=== PATIENT | male | born 1955 | race Caucasian/White ===

== ENCOUNTER 2023-12-20 00:11 | Emergency (ER) | payer BC, SELFPAY ==
[2023-12-20] VITALS (8 sets, daily range): BP systolic 138–170; BP diastolic 62–95; PULSE 53–56; RESP 16–22; TEMP 36.1; O2SAT 95–100; BMI 31.8
--- NOTE | 2023-12-20 00:45 | ED.ABDPAIN ---
HPI - Abdominal Pain General Chief Complaint: Abdominal Pain Stated Complaint: abdominal pain Time Seen by Provider: 12/20/23 00:39 Source: patient Mode of arrival: Ambulatory History of Present Illness HPI narrative: This is a 68-year-old male with a history of hypertension on lisinopril, patient presents with sudden onset of mid abdominal pain states it does not radiate, it kind of goes throughout the abdomen. He states it does not go to his chest it does not go to his back. He denies any fevers. He has had nausea no vomiting. He denies any shortness of breath. No lightheadedness or syncope. States he has been having bowel movements had 1 today he states it was normal size, soft and formed. Denies any black or bloody stools. Denies any urinary symptoms. He states pain woke him up from sleep. He has not had similar symptoms in the past. Has been increasing over time for the past 2 hours. He has not taken anything for pain. Denies any fevers or chills. States he has had prior hip replacement and neck intervention but no abdominal surgeries. No known drug allergies. No tobacco, alcohol or recreational drugs. They live in [place]. They are visiting the area he does have primary care where he lives. Related Data Allergies Allergy/AdvReac Type Severity Reaction Status Date / Time No Known Drug Allergies Allergy Verified 12/20/23 00:20 Review of Systems Review of Systems ROS Unobtainable: All systems reviewed & are unremarkable except as noted in HPI and below Patient History Social History Smoking Status: Never smoker Smoking Status: Never smoker Substance Use Type: does not use Exam Narrative Exam Narrative: GENERAL: Alert and oriented x three, obese male in moderate distress. HEENT: Head normocephalic, atraumatic, EOMI, pupils reactive, face symmetric, moist mucous membranes NECK: Supple, full range of motion CARDIOVASCULAR: Regular rate and rhythm without murmurs, rubs or gallops. RESPIRATORY: Breath sounds equal bilaterally, no wheezes rales or rhonchi. ABDOMEN: Soft, nontender. Nondistended. Normoactive bowel sounds all 4 quadrants. No guarding or rebound, rigidity, no mass, no pulsatile mass or bruit. : No CVA tenderness EXTREMITIES: Normal range of motion, no clubbing or edema. Neurovascularly intact. 2+ pulses bilateral lower extremities. NEUROLOGICAL: Cranial nerves II through XII grossly intact. Moving all extremities SKIN: Warm, dry, no petechiae, no rashes or lesions. Initial Vital Signs Initial Vital Signs: Vital Signs Temperature 97 F L 12/20/23 00:20 Pulse Rate 54 L 12/20/23 00:20 Respiratory Rate 17 12/20/23 00:20 Blood Pressure 138/95 H 12/20/23 00:20 Pulse Oximetry 100 12/20/23 00:20 Oxygen Delivery Method Room Air 12/20/23 00:20 Course Orders Ordered: ED Orders 12/20/23 00:24 EKG-12 Lead Stat 12/20/23 00:30 Complete Blood Count AUTO DIFF Stat Comprehensive Metabolic Panel Stat Lipase Stat Troponin & CK Cardiac Panel Stat 12/20/23 00:52 CT angio chest abdomen pelvis Stat 12/20/23 03:18 Urine Culture Stat Urine Microscopic Stat Discontinued Medications Sodium Chloride (Normal Saline 0.9%) 1,000 mls @ 1,000 mls/hr IV BOLUS ONE Stop: 12/20/23 01:52 Last Infusion: 12/20/23 04:02 Dose: Infused Documented By: Admin: 12/20/23 01:24 Dose: 1,000 mls/hr Documented By: ESME Ketorolac Tromethamine (Ketorolac 30 Mg/Ml Vial) 15 mg IV NOW ONE Stop: 12/20/23 00:47 Last Admin: 12/20/23 00:49 Dose: 15 mg Documented By: DOMINIC Morphine Sulfate (Morphine 4 Mg/Ml Inj) 4 mg IV NOW ONE Stop: 12/20/23 01:02 Last Admin: 12/20/23 01:24 Dose: 4 mg Documented By: ESME Ondansetron HCl (Ondansetron 4 Mg Odt) 4 mg PO NOW PRN PRN Reason: Nausea And Vomiting Ondansetron HCl (Ondansetron 4 Mg/2 Ml Inj) 4 mg IV NOW PRN PRN Reason: Nausea And Vomiting Ondansetron HCl (Ondansetron 4 Mg/2 Ml Inj) 4 mg IV NOW ONE Stop: 12/20/23 01:12 Last Admin: 12/20/23 01:24 Dose: 4 mg Documented By: ESME Ondansetron HCl (Ondansetron 4 Mg Odt Prepack) 1 bottle MISC DIRECTED ONE Stop: 12/20/23 03:40 Last Admin: 12/20/23 04:01 Dose: 1 bottle Documented By: KATI Vital Signs Vital signs: Vital Signs - 8 hr 12/20/23 00:20 12/20/23 00:45 12/20/23 01:30 Temperature 97 F L Pulse Rate 54 L 54 L 55 L Respiratory Rate 17 22 20 Blood Pressure 138/95 H 170/86 H 170/88 H Pulse Oximetry 100 100 95 Oxygen Delivery Method Room Air Room Air Room Air 12/20/23 02:00 12/20/23 02:30 12/20/23 03:00 Temperature Pulse Rate 54 L 56 L 56 L Respiratory Rate 18 18 16 Blood Pressure 160/84 H 156/78 H 156/62 H Pulse Oximetry 96 96 97 Oxygen Delivery Method Room Air Room Air Room Air 12/20/23 03:30 12/20/23 04:00 Temperature Pulse Rate 53 L 54 L Respiratory Rate 16 16 Blood Pressure 148/70 H 146/72 H Pulse Oximetry 96 98 Oxygen Delivery Method Room Air Room Air MDM - Abdominal Pain Lab Data 12/20/23 00:30 12/20/23 00:30 Labs: Lab Results 12/20/23 12/20/23 Range/Units 00:30 03:18 WBC 13.0 H (4.5-11.0) X10^3/uL RBC 4.87 (4.5-5.9) X10^6/uL Hgb 16.0 (13.5-17.5) g/dL Hct 47.0 (41-53) % MCV 96.5 (80-100) fL MCH 32.8 (26-34) PG MCHC 34.0 (30-36) % RDW 14.0 (11.6-14.8) % Plt Count 191 (150-400) X10^3/uL Neut % (Auto) 45.9 L (50-75) % Lymph % (Auto) 42.0 H (25-40) % [place] % (Auto) 10.4 (3-14) % Eos % (Auto) 1.4 L (2-4) % Baso % (Auto) 0.3 (0-2) % Neut # (Auto) 6000 (6356-4267) /uL Lymph # (Auto) 5400 H (7475-0715) /uL [place] # (Auto) 1300 H (0-900) /uL Eos # (Auto) 200 (0-450) /uL Baso # (Auto) 0 (0-100) /uL Sodium 138 (137-145) mmol/L Potassium 3.7 (3.4-5.1) mmol/L Chloride 104 (98-107) mmol/L Carbon Dioxide 28 (22-32) mmol/L BUN 18 (9-20) mg/dL Creatinine 1.39 H (0.66-1.25) mg/dL Estimated GFR 56 L (>60) mL/min BUN/Creatinine Ratio 12.9 (6-22) Glucose 125 H (80-110) mg/dL Calcium 9.3 (8.4-10.2) mg/dL Total Bilirubin 0.7 (0.2-1.3) mg/dL AST 35 (17-59) IU/L ALT 28 (<50) IU/L Alkaline Phosphatase 69 (38-126) U/L Total Creatine Kinase 295 H (55-170) U/L Troponin I < 0.012 (0.01-0.034) ng/mL Total Protein 6.7 (6.3-8.2) g/dL Albumin 4.2 (3.5-5.0) g/dL Globulin 2.5 (1.7-4.1) g/dL Albumin/Globulin Ratio 1.7 (1.0-2.8) Lipase 143 (23-300) U/L Urine RBC 1-5/hpf (0-5/HPF) Urine WBC None seen (0-5/HPF) Ur Squamous Epith Cells 0-1 /hpf (0-5/HPF) Calcium Oxalate Crystal Occasional H Urine Bacteria Occasional (0-1) (None) Hyaline Casts 0-1/lpf (None) Vol Urine Centrifuged 10ml (spun) Point of care testing: Urine Dip Bedside Urine Glucose Negative Bedside Urine Bilirubin - Negative Bedside Urine Ketone + 15 Urine Specific [place] 1.010 Bedside Urine Occult Blood +/- Bedside Urine pH 6.0 Bedside Urine Protein +/- 15 Bedside Urine Urobilinogen +/- 1mg Bedside Urine Nitrite - Negative Bedside Urine Leukocytes - Negative Esterase Imaging Data CTA chest/abd/pelvis: Radiologist's Impression: [address] [address] [address] Scan Report Signed Patient: Ras Alaniz MR#: [id number] : 1955 Acct:[id number] Age/Sex: 68 / M Date of Service: 12/20/23 Loc: ED Accession Number: [id number] Procedure: CT angio chest abdomen pelvis Ordering Provider: Jessica Nicole D.O. PROCEDURE: CT ANGIO CHEST ABDOMEN PELVIS INDICATIONS: abd pain sudden onset, midline, nontender w/ palp TECHNIQUE: Precontrast 5 mm thick sections acquired from the lung apices to the iliac crests. After the administration of intravenous contrast, 2.5 mm thick sections again acquired from the lung apices to the iliac crests. Maximum intensity projection (MIP) oblique sagittal and coronal reformats were then acquired. For radiation dose reduction, the following was used: automated exposure control. COMPARISON: None. FINDINGS: Chest: Cardiovascular: Heart size is normal. No evidence of pulmonary embolism, aortic aneurysm or dissection. Lungs and pleural spaces: The lung jasso are clear without nodule, infiltrate or interstitial prominence. Pleural spaces show no effusion or pneumothorax. Lymph nodes: No mediastinal, hilar or axillary adenopathy. Mediastinum: Unremarkable. No hiatal hernia. Thyroid within normal limits. Chest Wall and Bones: Unremarkable. No acute fracture. Abdomen and Pelvis: Liver: Normal in size and attenuation. No contour deformity present. Biliary system: No calcified cholelithiasis or pericholecystic inflammation. No intra or extrahepatic bile duct dilatation. Pancreas: Unremarkable without mass or inflammation evident. Spleen: Normal in size and density. Adrenals: Normal morphology and density. Reproductive system: Unremarkable as visualized. Urinary system: Normal renal size and attenuation. No renal calculi, hydronephrosis, or solid mass present. Urinary bladder unremarkable. Gastrointestinal system: The bowel is unremarkable with no evidence of bowel obstruction or inflammation. The stomach appears unremarkable. Appendix: No findings to suggest acute appendicitis. Lymph nodes: No mesenteric or retroperitoneal adenopathy. Peritoneal spaces: No free air. No free fluid. Vasculature: The IVC, aorta and iliac vasculature are unremarkable. Abdominal wall: Bilateral inguinal hernia(s) contain fat without bowel involvement. Musculoskeletal: Normal bone mineralization. Degenerative disc disease and arthropathy noted in lower lumbar spine. Severe L4-5 central stenosis. Left hip prosthesis No acute fractures. IMPRESSION: No evidence of aortic aneurysm or dissection. No pulmonary embolism. No acute CT findings in the chest abdomen and pelvis Approved by: Isaiah Albright M.D. on 12/20/2023 at 1:17 ECG Data Attestation: I personally reviewed and interpreted this ECG as follows: Prior ECG tracings: not available for review Interpretation: Sinus bradycardia rate of 51 [place] 190 QRS 82 QTC of 414. Patient has a inverted T-wave in 2 3 and AVF F, no elevation. MDM Narrative Medical decision making narrative: 68-year-old male who presents with complaint of sudden onset of abdominal pain while sleeping, he is nontender on palpation. He has not particularly hypertensive but does appear quite uncomfortable. Pain appears to be more midline periumbilical. No palpable hernia. He does not have any back or flank pain. He is neurovascularly intact. Labs patient has a white count of 13 normal hemoglobin platelets of 191, electrolytes are 138 potassium 3.7 chloride 104 CO2 of 28 BUN 18 creatinine of 1.39, no priors for comparison total CK is 295 with a negative troponin, patient's labs are otherwise normal. EKG does show T-wave inversion in 2 3 AVF although patient's pain is much lower more periumbilical region. CT angio chest abdomen pelvis shows no acute change. No aneurysm or dissection no PE, severe L4-L5 central stenosis.. Bilateral inguinal hernias containing fat without bowel involvement. Urine shows no nitrates, leuks or blood. Patient received pain medication, short daily after we can quite nauseated had quite a bit of vomiting received Zofran. He feels improved afterwards. Patient has ambulated to the bathroom, he has had any additional vomiting. He states his pain has resolved. Feels comfortable returning home. Discussed potential causes of pain, need for follow-up. Discharge Plan Departure Patient Disposition: Home Clinical Impression: Abdominal pain, Vomiting Instructions: DI for Abdominal Pain-Adult Activity Restrictions/Additional Instructions: Follow up for recheck if you are having any persistent symptoms. I hope you continue to feel improved Your imaging today showed bilateral inguinal hernias with fat but no bowel involvement, there is some stenosis in the L4-L5 region with arthritic changes. You may take Zofran 1 tablet every 6 hours as needed for nausea. You can take Pepcid up to 40 mg daily for symptoms. Please return if you are having fevers recurrent abdominal back or flank pain, any persistent vomiting, black or bloody stools, if you are having difficulty with bowel movements or other new or concerning changes. Stand Alone Forms: Patient Portal/API
[2023-12-20] MEDS: KETOROLAC 30 MG/ML VIAL 15 MG IV (00:49)
--- NOTE | 2023-12-20 00:52 | DI.CT.S_ITS ---
PROCEDURE: CT ANGIO CHEST ABDOMEN PELVIS INDICATIONS: abd pain sudden onset, midline, nontender w/ palp TECHNIQUE: Precontrast 5 mm thick sections acquired from the lung apices to the iliac crests. After the administration of intravenous contrast, 2.5 mm thick sections again acquired from the lung apices to the iliac crests. Maximum intensity projection (MIP) oblique sagittal and coronal reformats were then acquired. For radiation dose reduction, the following was used: automated exposure control. COMPARISON: None. FINDINGS: Chest: Cardiovascular: Heart size is normal. No evidence of pulmonary embolism, aortic aneurysm or dissection. Lungs and pleural spaces: The lung jasso are clear without nodule, infiltrate or interstitial prominence. Pleural spaces show no effusion or pneumothorax. Lymph nodes: No mediastinal, hilar or axillary adenopathy. Mediastinum: Unremarkable. No hiatal hernia. Thyroid within normal limits. Chest Wall and Bones: Unremarkable. No acute fracture. Abdomen and Pelvis: Liver: Normal in size and attenuation. No contour deformity present. Biliary system: No calcified cholelithiasis or pericholecystic inflammation. No intra or extrahepatic bile duct dilatation. Pancreas: Unremarkable without mass or inflammation evident. Spleen: Normal in size and density. Adrenals: Normal morphology and density. Reproductive system: Unremarkable as visualized. Urinary system: Normal renal size and attenuation. No renal calculi, hydronephrosis, or solid mass present. Urinary bladder unremarkable. Gastrointestinal system: The bowel is unremarkable with no evidence of bowel obstruction or inflammation. The stomach appears unremarkable. Appendix: No findings to suggest acute appendicitis. Lymph nodes: No mesenteric or retroperitoneal adenopathy. Peritoneal spaces: No free air. No free fluid. Vasculature: The IVC, aorta and iliac vasculature are unremarkable. Abdominal wall: Bilateral inguinal hernia(s) contain fat without bowel involvement. Musculoskeletal: Normal bone mineralization. Degenerative disc disease and arthropathy noted in lower lumbar spine. Severe L4-5 central stenosis. Left hip prosthesis No acute fractures. IMPRESSION: No evidence of aortic aneurysm or dissection. No pulmonary embolism. No acute CT findings in the chest abdomen and pelvis Approved by: Isaiah Albright M.D. on 12/20/2023 at 1:17
--- NOTE | 2023-12-20 00:55 | PC.NURSE ---
pt c/o continued pain, to CT per stretcher,
[2023-12-20 01:00] LABS: Add Manual Diff / Slide Review NO; Basophils Absolute Auto 0 /uL (0-100); Basophils Percent Auto 0.3 % (0-2); Eosinophils Absolute Auto 200 /uL (0-450); Eosinophils Percent Auto 1.4 % (2-4); Lymphocytes Absolute Auto 5400 /uL (1100-4500); Mean Corpuscular Hemoglobin 32.8 PG (26-34); Mean Corpuscular Volume 96.5 fL (80-100); Monocytes Absolute Auto 1300 /uL (0-900); Monocytes Percent Auto 10.4 % (3-14); Neutrophils Absolute Auto 6000 /uL (1500-7000); Neutrophils Percent Auto 45.9 % (50-75); Platelet Count 191 X10^3/uL (150-400); Red Blood Cell Count 4.87 X10^6/uL (4.5-5.9)
[2023-12-20 01:08] LABS: Creatine Kinase 295 U/L (55-170)
[2023-12-20 01:10] LABS: Alanine Aminotransferase 28 IU/L (<50); Albumin 4.2 g/dL (3.5-5.0); Albumin Globulin Ratio 1.7 (1.0-2.8); Alkaline Phosphatase 69 U/L (38-126); Aspartate Aminotransferase 35 IU/L (17-59); BUN Creatinine Ratio 12.9 (6-22); Bilirubin Total 0.7 mg/dL (0.2-1.3); Blood Urea Nitrogen 18 mg/dL (9-20); Calcium 9.3 mg/dL (8.4-10.2); Carbon Dioxide 28 mmol/L (22-32); Chloride 104 mmol/L (98-107); Estimated Glomerular Filt Rate 56 mL/min (>60); Globulin 2.5 g/dL (1.7-4.1); Glucose 125 mg/dL (80-110); HEMOLYSIS 23 (0-50); Lipase 143 U/L (23-300); Potassium 3.7 mmol/L (3.4-5.1); Sodium 138 mmol/L (137-145); Total Protein 6.7 g/dL (6.3-8.2)
--- NOTE | 2023-12-20 01:10 | PC.NURSE ---
pt medicated for pain while in CT, upon completion of CT pt began projectile vomiting, brown colored fluid
[2023-12-20 01:21] LABS: Troponin I < 0.012 ng/mL (0.01-0.034)
[2023-12-20] MEDS: MORPHINE 4 MG/ML INJ IV (01:24)
[2023-12-20] MEDS: SODIUM CHLORIDE 0.9% 1,000 ML 1000 ML IV (01:24)
[2023-12-20] MEDS: ONDANSETRON 4 MG/2 ML INJ IV (01:24)
--- NOTE | 2023-12-20 01:45 | PC.NURSE ---
pt feeling better does not feel as bloated, distension to abdomen decreased
[2023-12-20] MEDS: ONDANSETRON 4 MG ODT PREPACK 1 BOTTLE MISC (04:01)
[2023-12-20 04:10] LABS: Bacteria Urine Occasional (0-1); Calcium Oxalate Crystals Urine Occasional; Hyaline Casts Urine 0-1/LPF; RBC Urine 1-5/HPF (0-5/HPF); Squamous Epithelial Cell Urine 0-1 /HPF (0-5/HPF); Urine Volume 10mL (spun); WBC Urine None Seen (0-5/HPF)
== END 2023-12-20 04:00 | disposition home or self-care (01) ==
PROVIDERS: Emergency Provider Emergency Medicine
DX: R10.9 Unspecified abdominal pain (principal); R11.2 Nausea with vomiting, unspecified
CPT/HCPCS: 36415; 71275; 74174; 80053; 81003; 81015; 82550; 83690; 84484; 85025; 87086; 93005; 96374; 96375; 99284; J1885; J2270; J2405; Q9967